=== PATIENT | female | born 1935 | race Caucasian/White ===

== ENCOUNTER → 2017-08-02 | Day surgery (SDC) | payer OTHER ==
[~2017-08-02] VITALS: Ht 152.4 cm; Wt 78.2 kg
[2017-08-02 06:51] LABS: PTT 43.9 SECONDS (24.3-32.1)
[2017-08-02 07:15] LABS: INR 1.56 (0.9-1.2); PROTHROMBIN TIME 17.7 SECONDS (11.4-13.2)
[2017-08-02 07:22] LABS: CREATININE 0.8 mg/dL (0.5-1.0); POTASSIUM 4.2 mmol/L (3.5-5.1)
== END | disposition home or self-care (01) ==
LOC: FAS 05:55
PROVIDERS: Orthopaedic Surgery
DX: G56.01 Carpal tunnel syndrome, right upper limb (principal); I48.91 Unspecified atrial fibrillation; I10 Essential (primary) hypertension; E11.9 Type 2 diabetes mellitus without complications; M19.90 Unspecified osteoarthritis, unspecified site; Z88.8 Allergy status to other drugs, medicaments and biological substances; Z90.710 Acquired absence of both cervix and uterus; Z85.828 Personal history of other malignant neoplasm of skin; Z79.01 Long term (current) use of anticoagulants; Z79.84 Long term (current) use of oral hypoglycemic drugs; Z79.899 Other long term (current) drug therapy; Z98.890 Other specified postprocedural states
CPT/HCPCS: 36415; 80048; 85610; 85730; J2704; J3010